=== PATIENT | male | born 1985 | race Caucasian/White ===

== ENCOUNTER 2022-01-14 15:33 | Emergency (ER) | payer BC, OTHER ==
[~2022-01-14 15:33] MED LIST: Iopamidol 370 76% 100 ML VIAL ONE
[2022-01-14] MEDS ORDERED: Ondansetron ODT 4 MG TAB ONE (16:42)
[2022-01-14] MEDS ORDERED: Ketorolac Tromethamine 30 MG/ML VIAL ONE (16:42)
[2022-01-14] MEDS ORDERED: Lorazepam 2 MG/ML VIAL ONE (16:46)
[2022-01-14] MEDS ORDERED: Mag-Al Plus 1200 MG/1200 MG/120 MG/30 ML UDCUP ONE (16:47)
[2022-01-14] MEDS ORDERED: Dexamethasone 10 MG/ML VIAL ONE (19:00)
== END 2022-01-14 19:45 | disposition home or self-care (01) ==
LOC: CSHERS 15:33
DX: J02.9 Acute pharyngitis, unspecified (principal); E78.5 Hyperlipidemia, unspecified; F17.210 Nicotine dependence, cigarettes, uncomplicated; K21.9 Gastro-esophageal reflux disease without esophagitis; Z79.899 Other long term (current) drug therapy
CPT/HCPCS: 70492; 96372; J1100; J1885; J2060; Q0162; Q9967